=== PATIENT | female | born 1960 | race Caucasian/White ===

== ENCOUNTER → 2021-06-14 | Outpatient (CLI) | payer BC ==
--- NOTE | 2021-06-14 11:11 | CT ---
EXAMINATION TYPE: CT abdomen wo/w con DATE OF EXAM: 06/14/2021 HISTORY: Renal mass, outside abnormal lumbar spine MRI CT DLP: 886.3mGycm Automated Exposure Control for Dose Reduction was Utilized. CONTRAST: CT scan of the abdomen is performed with oral and without and with IV Contrast, patient injected with 100 mL of Isovue 300. COMPARISON: None at this institution FINDINGS: LUNG BASES: No significant abnormality is appreciated. LIVER/GB: No significant abnormality is appreciated. PANCREAS: No significant abnormality is seen. SPLEEN: No significant abnormality is seen. ADRENALS: No significant abnormality is seen. KIDNEYS: Noncontrast images show no renal calculi bilaterally. Postcontrast images show symmetric upt jj and excretion without hydronephrosis seen bilaterally. Subcentimeter roughly 5 mm hyperdense lesi on posteriorly left kidney midpole level coronal series 11 image 65 is too small to characterize pres umed benign proteinaceous or hemorrhagic cyst. No concerning solid or cystic renal mass identified bi laterally. BOWEL: No significant abnormality is seen. UTERUS/ADNEXA: No gross abnormality seen. LYMPH NODES: No greater than 1cm abdominal or pelvic lymph nodes are appreciated. OSSEOUS STRUCTURES: Moderate disc space narrowing L4-L5 level. Mild disc space narrowing L2-L3 level. Mild to moderate spurring at these levels. Facet arthropathy lower lumbar spine. OTHER: Mild calcified plaque in the abdominal aorta extends into branch vessels. IMPRESSION: No suspicious solid or cystic mass in either kidney. If outside MRI images and/or report become available an addendum may be issued.
== END | disposition home or self-care (01) ==
LOC: RADCTMAIN 08:47
PROVIDERS: ATTEND Internal Medicine
DX: N28.89 Other specified disorders of kidney and ureter (principal)
CPT/HCPCS: 74170; Q9967

== ENCOUNTER → 2021-08-19 | Outpatient (CLI) | payer BC ==
--- NOTE | 2021-08-20 10:59 | MM ---
Reason for exam: screening (asymptomatic). History: Patient is postmenopausal and history of other cancer. Family history of breast cancer in maternal grandmother. Physical Findings: A clinical breast exam by your physician is recommended on an annual basis and results should be correlated with mammographic findings. MG 3D Screening Mammo W/Cad Bilateral CC and MLO view(s) were taken. XCCL view(s) were taken of the left breast. No prior studies available for comparison. There are scattered fibroglandular densities. No significant findings. ASSESSMENT: Benign, BI-RAD 2 RECOMMENDATION: Routine screening mammogram of both breasts in 1 year.
== END | disposition home or self-care (01) ==
LOC: RADMAMWWP 15:43
PROVIDERS: ATTEND Internal Medicine
DX: Z12.31 Encounter for screening mammogram for malignant neoplasm of breast (principal); Z78.0 Asymptomatic menopausal state; Z80.3 Family history of malignant neoplasm of breast
CPT/HCPCS: 77063; 77067

== ENCOUNTER → 2025-02-05 | Outpatient (CLI) | payer MEDICARE ==
--- NOTE | 2025-02-05 09:45 | CT ---
EXAMINATION TYPE: CT shoulder LT wo con DATE OF EXAM: 02/05/2025 9:09 AM COMPARISON: none CLINICAL INDICATION: Female, 64 years old with history of M12.80 SPECIFIC ARTHROPATHIES, NEC, UNSP S ITE; PHH, preop shoulder TECHNIQUE: Axial images were obtained of the CT shoulder LT wo con, Additional coronal and sagittal r eformatted images and soft tissue and bone window were obtained for review. 3-D reconstruction was cr eated on a separate workstation. Contrast used: mL of , (None if empty) Oral contrast used: (None if empty) CT DLP: 262.70 mGycm, Automated exposure control for dose reduction was used. FINDINGS: There is complete loss of joint space and [id number] articulation of the glenohumeral pamella nt with subchondral cystic change and sclerosis of the glenoid. Calcified joint body noted in the sub acromial recess. No evidence for fracture or dislocation. Rotator cuff appears grossly intact no foca l muscular atrophy changes. Aortic arch calcifications. Pulmonary parenchyma is grossly unremarkable. IMPRESSION: End-stage left shoulder osteoarthrosis of the glenohumeral joint. [facility], , 02/05/2025 9:42 AM
== END | disposition home or self-care (01) ==
LOC: RADCTMAIN 08:18
PROVIDERS: ATTEND Orthopaedic Surgery Sports Medicine
DX: M75.102 Unspecified rotator cuff tear or rupture of left shoulder, not specified as traumatic (principal); M19.012 Primary osteoarthritis, left shoulder